=== PATIENT | male | born 1960 | race Caucasian/White ===

== ENCOUNTER 2017-08-18 06:14 | Emergency (ER) | payer OTHER ==
[~2017-08-18] VITALS: Ht 177.8 cm; Wt 104.3 kg
[~2017-08-18 06:14] MED LIST: CLONAZEPAM0.5 M2 PO; CYCLOBENZAPRINE10 M1 PO; MOBIC15 M1 PO; ZOLPIDEM TARTRAT5 M1 PO
[2017-08-18] MEDS ORDERED: SIMVASTATIN40 M1 PO (06:29)
--- NOTE | 2017-08-18 06:47 | ED GI/GU/ABDOMINAL COMPLAINT ---
History of Present Illness General Chief Complaint: Abdominal Pain/Flank Pain Stated Complaint: LEFT SIDED FLANK PAIN Source: patient Exam Limitations: no limitations Vital Signs & Intake/Output Vital Signs & Intake/Output Vital Signs Date Time Temp Pulse Resp B/P B/P Pulse O2 O2 Flow FiO2 Mean Ox Delivery Rate 08/18 0814 79 18 137/87 99 Room Air 08/18 0658 96 Room Air 08/18 0630 97.0 86 18 162/99 96 Room Air Allergies Coded Allergies: No Known Allergies (08/18/17) Triage Note: TRIAGE: PATIENT TO ER FORM HOME REPORTING SINCE MONDAY, WOKE FROM SLEEP W/ CONSTANT SHARP/ BURNING PAIN TO L SIDE. REPORTS "I HAD THE FLU A FEW WEEKS AGO AND WAS COUGHING ALOT AND PULED A MUSCLE ON THE OTHER SIDE. IT COULD BE THAT." DENIES URINARY DIFFICULTIES, DENIES INJURIES. REPORTS WENT TO WALK IN AND REPORTED THAT HE HAD BEEN SLIGHTY CONSTIPATED X 2 DAYS "FROM THE PAIN," AND THEY SENT HIM HERE "IN CASE." Triage Nurses Notes Reviewed? yes HPI: Patient presents for evaluation of a constant moderate to severe left flank pain that began abruptly awakening him from sleep Monday morning. Patient states that it is a burning pain that gets worse with movement and deep inspiration. He has tried ibuprofen 2 tablets without relief. He was seen in the walk-in center and was sent to the emergency department for evaluation. He denies associated vomiting diarrhea dysuria or hematuria. he denies known injury. Nothing seems to make the pain feel better. (Ankita TERRY,Travis Payan) Reconcile Medications Ibuprofen 600 MG TABLET 1 TAB PO Q6PRN PRN pain with food Oxycodone HCl/Acetaminophen (Percocet 5-325 MG Tablet) 5 MG-325 MG TABLET 1-2 TAB PO Q6P PRN severe pain Simvastatin (Simvastatin*) 40 MG TABLET 1 TAB PO QPM (Reported) Tamsulosin HCl (Flomax) 0.4 MG CAP.ER.24H 1 CAP PO DAILY kidney stone (Shanell TERRY,Jordan) Past History Travel History Traveled to [place] past 21 day No Medical History Any Pertinent Medical History? 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 No (Ankita TERRY,Travis Payan) Review of Systems Review of Systems Constitutional: Reports: no symptoms. EENTM: Reports: no symptoms. Respiratory: Reports: no symptoms. Cardiovascular: Reports: no symptoms. GI: Reports: no symptoms. Genitourinary: Reports: no symptoms. Musculoskeletal: Reports: see HPI. Skin: Reports: no symptoms. Neurological/Psychological: Reports: no symptoms. Hematologic/Endocrine: Reports: no symptoms. Immunologic/Allergic: Reports: no symptoms. All Other Systems: Reviewed and Negative (Ankita TERRY,Travis Payan) Physical Exam Physical Exam Gastrointestinal: see below Comments: Gen.: Well-nourished, well-developed, no acute respiratory distress. Head: Normocephalic, atraumatic. Eyes: Normal inspection bilaterally Ears: Normal inspection bilaterally Nose: Normal inspection Throat/mouth : Moist mucosa Neck: Supple, full range of motion, no goiter Heart: Regular rate and rhythm, no murmurs rubs or gallops Lungs: Clear to auscultation bilaterally with normal air entry Chest: Nontender Back: Normal range of motion, pain over the left flank with certain movements and palpation Abdomen: Soft, nontender, nondistended, normal bowel sounds Extremities: Normal range of motion grossly, equal radial pulses, no cyanosis clubbing or edema Neurologic: Cranial nerves grossly intact, speech is clear Skin: warm and dry, no rashes Psychiatric: Calm, cooperative, no apparent delusions or hallucinations Core Measures ACS in differential dx? No Sepsis Present: No Sepsis Focused Exam Completed? No (Ankita TERRY,Travis Payan) Progress Differential Diagnosis: MUSCULOSKELETAL PAIN, RENAL COLIC, SHINGLES, DIVERTICULITIS Plan of Care: Orders Procedure Date/time Status URINALYSIS 08/18 06 Complete LIPASE 08/18 0646 Complete COMPREHENSIVE METABOLIC PANEL 08/18 0646 Complete CBC WITHOUT DIFFERENTIAL 08/18 0646 Complete Current Medications Sig/Hortencia Start time Last Medication Dose Stop Time Status Admin Sodium Chloride 1,000 ML BOLUS ONE 08/18 829 AC 08/18 (Normal Saline 0.9%) 08/18 0929 0850 Laboratory Tests 08/18/17 0820: Urinalysis LIGHT H, Urine Color YEL, Urine Clarity CLEAR, Urine pH 7.0, Ur Specific [place] 1.020, Urine Protein 30 H, Urine Ketones TRACE H, Urine Nitrite NEG, Urine Bilirubin NEG, Urine Urobilinogen 0.2, Ur Leukocyte Esterase NEG, Ur Microscopic SEDIMENT EXAMINED, Urine RBC RARE, Ur Epithelial Cells RARE, Urine Mucus FEW, Urine Hemoglobin NEG, Urine Glucose NEG 08/18/17 0725: Anion Gap 11, Estimated GFR > 60, BUN/Creatinine Ratio 10.0, Glucose 128 H, Calcium 9.5, Total Bilirubin 1.1, AST 39, ALT 77 H, Alkaline Phosphatase 78, Total Protein 7.6, Albumin 4.3, Globulin 3.3, Albumin/Globulin Ratio 1.3, Lipase 145, CBC w Diff NO MAN DIFF REQ, RBC 5.00, MCV 88.7, MCH 30.8, MCHC 34.8, RDW 13.2, MPV 6.9 L, Gran % 67.3, Lymphocytes % 21.7, Monocytes % 7.5, Eosinophils % 2.5, Basophils % 1.0, Absolute Granulocytes 4.1, Absolute Lymphocytes 1.3, Absolute Monocytes 0.5, Absolute Eosinophils 0.2, Absolute Basophils 0.1 Initial ED EKG: none Comments: 08/18/2017 7:24:03 AM 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 (Ankita TERRY,Travis Payan) Diagnostic Imaging: Viewed by Me: CT Scan. Discussed w/RAD: CT Scan. Radiology Impression: 3 mm nonobstructing calculus in the lower pole of the left kidney. (Jordan Reece MD) Departure Departure Departure Forms: Customer Survey General Discharge Information (Ankita TERRY,Travis Payan) Departure Time of Disposition: 929 Disposition: HOME OR SELF CARE Condition: Stable Clinical Impression Primary Impression: Renal colic on left side Secondary Impressions: Left flank pain Referrals: Lynn PISANO-BC,Vishnu Ivey (PCP/Family) Cholo TERRY,Jovani Ribeiro Call for urology follow up Prescriptions: Current Visit Scripts Ibuprofen 1 TAB PO Q6PRN PRN pain #50 TAB with food Tamsulosin HCl (Flomax) 1 CAP PO DAILY #15 CAP Oxycodone HCl/Acetaminophen (Percocet 5-325 MG Tablet) 1-2 TAB PO Q6P PRN severe pain #15 TAB (Jordan Reece MD)
--- NOTE | 2017-08-18 07:30 | CT SCAN REPORT ---
EXAMINATION: CT ABDOMEN AND PELVIS WITHOUT CONTRAST CLINICAL INFORMATION: Left renal colic. COMPARISON: None TECHNIQUE: Multidetector volumetric imaging was performed from the superior aspect of the liver through the pubic symphysis. Sagittal and coronal reformatted images were obtained on the technologist's workstation. DLP: 704 mGy-cm FINDINGS: LUNG BASES: The visualized lung bases are unremarkable. LIVER, GALLBLADDER, AND BILIARY TREE: The liver is normal in size, shape, and attenuation. No focal hepatic lesion or biliary ductal dilatation is present. The gallbladder is unremarkable with no evidence of radiopaque gallstones, gallbladder wall thickening, or obvious pericholecystic inflammatory changes. PANCREAS: Unremarkable. SPLEEN: Unremarkable. ADRENAL GLANDS: Unremarkable. KIDNEYS AND URETERS: There is a nonobstructing 3 mm 250 HU calculus in the lower pole of the left kidney 13.5 cm from the posterior axillary line. No hydroureteronephrosis on either side. No ureteral calculus on either side. The right kidney is unremarkable. BLADDER: No bladder calculus. GASTROINTESTINAL TRACT: Stomach is unremarkable. Small bowel is normal in caliber. Appendix is normal. There is moderate left-sided diverticulosis without evidence of diverticulitis. ABDOMINAL WALL: No significant hernia is appreciated. LYMPH NODES: Normal. VASCULAR: Mild atherosclerotic calcification. There are accessory left renal artery and vein from the lower pole of the kidney which originate on the lower abdominal aorta and insert on the left common iliac vein respectively PELVIC VISCERA: The prostate measures 5.2 x 4.7 x 5.8 cm. OSSEOUS STRUCTURES: Degenerative changes in the spine. No suspicious osseous lesions. IMPRESSION: 3 mm nonobstructing calculus in the lower pole of the left kidney.
[2017-08-18 07:34] LABS: ABSOLUTE BASOPHIL COUNT 0.1 /CUMM (0.0-0.2); ABSOLUTE EOSINOPHIL COUNT 0.2 /CUMM (0.0-0.7); ABSOLUTE GRANULOCYTE CT 4.1 /CUMM (1.4-6.5); ABSOLUTE LYMPH COUNT 1.3 /CUMM (1.2-3.4); ABSOLUTE MONOCYTE COUNT 0.5 /CUMM (0.10-0.60); EOSINOPHIL % 2.5 % (0-5); GRANULOCYTE % 67.3 % (42.2-75.2); HEMATOCRIT 44.4 % (42-52); MEAN CORPUSCULAR HGB 30.8 PG (27.0-31.0); MEAN CORPUSCULAR HGB CONC 34.8 G/DL (33.0-37.0); MEAN CORPUSCULAR VOLUME 88.7 FL (80.0-94.0); MEAN PLATELET VOLUME 6.9 FL (7.4-10.4); PLATELET COUNT 320 /CUMM (130-400); RBC DISTRIBUTION WIDTH 13.2 % (11.5-14.5); WHITE BLOOD CELL COUNT 6.1 /CUMM (4.8-10.8)
[2017-08-18] MEDS ORDERED: IBUPROFEN600 M1 PO (08:58)
[2017-08-18] MEDS ORDERED: FLOMAX0.4 M1 PO (08:58)
[2017-08-18] MEDS ORDERED: PERCOCET 5-3251 EACH PO (08:58)
[2017-08-18 09:33] VITALS: BP 143/90
== END 2017-08-18 09:34 ==
LOC: ERH 06:14
PROVIDERS: Emergency Medicine
DX: N23 Unspecified renal colic (principal)
CPT/HCPCS: 74176; 81001; 96374; 96375; J1885

== ENCOUNTER → 2017-09-26 | Day surgery (SDC) | payer OTHER ==
[~2017-09-26] VITALS: Ht 177.8 cm; Wt 103.0 kg
[~2017-09-26] MED LIST changes: +FLOMAX0.4 M1 PO; +IBUPROFEN600 M1 PO; +LOSARTAN POTASS25 M1 PO; +PERCOCET 5-3251 EACH PO; +SIMVASTATIN40 M1 PO
--- NOTE | 2017-09-26 09:56 | Operative Report ---
Operative/Inv Procedure Report Surgery Date: 09/26/17 Name of Procedure: left renal ESWL, fluoroscopy Pre-Operative Diagnosis: left colic with left renal stone Post-Operative Diagnosis: same Estimated Blood Loss: none Surgeon/Command Post Superintendent: Albino Mayfield MD Anesthesia: moderate sedation Specimens: none Complications: none Operative/Procedure Note Note: The patient was taken to the operating room and placed on the ESWL table in supine position. With the patient awake, timeout was performed to confirm correct identity, procedure, laterality, anesthesia, and other pertinent stephani- operative information. After adequate anesthesia, the patient was positioned so that the patient's left flank was positioned over the table cut-out, overlying the dome of the treatment head. Once the patient was adequately sedated, fluoroscopy, as well as Renal ultrasound was used to locate the LEFT renal stone. Renal US confirmed the presence of the stone which measured it to be approximately 6 mm upper pole stone. The stone was visible with fluoroscopy. Renal US revealed, no hydronephrosis, and no solid tumor, and presence of the stone. The position of the stone was optimized by using fluoroscopy in AP and oblique views;placing the stone within the ESWL c-arm crosshairs. Once the stone's position was optimized , the LEFT renal E.S.W.L. was initiated at low energy level. After noting the patient's tolerance to the shockwaves, the intensitiy was ramped up to maximum level. At the end of the procedure, the left renal stone had dissintegrated. Of note, a total of 2500 shockwaves were delivered to the stone. The patient tolerated the ESWL procedures well, was awakened, then taken to recovery in satisfactory condition via stretcher. The patient was dischared home with pain medications, diet orders, and intructions to catch fragments by straining the urine. The patient to to have follow-up renal ultrasound and KUB in 1 to 2 weeks, prior to follow-up visit in my office. He will then proceed with metabolic stone work-up. Findings: 6mm left MP stone Discharge Disposition: Same Day Admissions CC: Albino Mayfield MD
== END ==
LOC: STS 02:23
DX: N20.0 Calculus of kidney (principal); I10 Essential (primary) hypertension
CPT/HCPCS: J2250